=== PATIENT | female | born 1975 | race Caucasian/White ===

== ENCOUNTER 2021-07-30 08:01 | Inpatient (IN) | payer MEDICARE, MEDICAID ==
[2021-07-30] MEDS ORDERED: Rocuronium 50 MG/5 ML Vial ONE (08:40)
[2021-07-30] MEDS ORDERED: Neostigmine Methylsulfate 1 MG/ML 5 ML Syringe ONE (08:40)
[2021-07-30] MEDS ORDERED: Propofol 200 MG/20 ML SDV ONE (08:40)
[2021-07-30] MEDS ORDERED: Ondansetron 4 MG/2 ML SDV ONE (08:40)
[2021-07-30] MEDS ORDERED: Succinylcholine 200 MG/10 ML MDV ONE (08:40)
[2021-07-30] MEDS ORDERED: fentaNYL 250 MCG/5 ML SDV ONE ×2 (08:40→12:20)
[2021-07-30] MEDS ORDERED: Glycopyrrolate 0.2 MG/ML 5 ML MDV ONE (08:40)
[2021-07-30] MEDS ORDERED: Dexamethasone 4 MG/ML SDV ONE (08:40)
[2021-07-30] MEDS ORDERED: Celecoxib 200 MG Cap PO ONE (09:00)
[2021-07-30] MEDS ORDERED: Scopolamine 1.5 MG Transdermal Patch TOP SCH (09:00)
[2021-07-30] MEDS ORDERED: Acetaminophen 500 MG Tab PO ONE (09:00)
[2021-07-30] MEDS ORDERED: Dextrose 5%-Lactated Ringers 1,000 ML IV SCH (09:30)
[2021-07-30] MEDS ORDERED: Meropenem 500 MG in Sodium Chloride 0.9% 50 ML IV ONE (10:30)
[2021-07-30] MEDS ORDERED: Naloxone 0.4 MG/ML SDV IVPUSH PRN (10:32)
[2021-07-30] MEDS ORDERED: Ondansetron 4 MG/2 ML SDV IVPUSH PRN ×2 (10:32→16:00)
[2021-07-30] MEDS ORDERED: diphenhydrAMINE 25 MG Cap PO PRN (10:32)
[2021-07-30] MEDS ORDERED: diphenhydrAMINE 50 MG/ML SDV IVPUSH PRN ×2 (10:32→16:00)
[2021-07-30] MEDS ORDERED: HYDROmorphone/Normal Saline 6 MG/30 ML PCA Vial IV PRN (10:32)
[2021-07-30] MEDS ORDERED: Lidocaine 1% with EPINEPHrine 1:100,000 50 ML MDV ONE (10:51)
[2021-07-30] MEDS ORDERED: Meropenem 500 MG SDV ONE (10:51)
[2021-07-30] MEDS ORDERED: Bupivacaine 0.5% 50 ML MDV ONE (10:51)
[2021-07-30] MEDS ORDERED: Naloxone 0.4 MG/ML SDV IV PRN (11:00)
[2021-07-30] MEDS ORDERED: Lactated Ringers 1,000 ML ONE (13:16)
[2021-07-30] MEDS ORDERED: Ketamine 15 MG in Sodium Chloride 0.9% 19.85 ML IV SCH (14:00)
[2021-07-30] MEDS ORDERED: Ketamine 500 MG/5 ML MDV IV SCH (14:00)
[2021-07-30] MEDS ORDERED: diphenhydrAMINE 50 MG/ML SDV ONE (14:23)
[2021-07-30] MEDS ORDERED: Albuterol/Ipratropium 3.0-0.5 MG/3 ML Neb Soln INH PRN (15:28)
[2021-07-30] MEDS ORDERED: LORazepam 2 MG/ML SDV IVPUSH PRN (15:37)
[2021-07-30] MEDS ORDERED: Meropenem 500 MG in Sodium Chloride 0.9% 50 ML IV SCH (15:45)
[2021-07-30] MEDS: Cyclobenzaprine 10 MG Tab PO PRN (15:52)
[2021-07-30] MEDS ORDERED: MVI, Adult with Vitamin K 10 ML, Thiamine 200 MG, Zinc/Copper/Manganese/Selenium 1 ML i... IV SCH ×4 (16:00)
[2021-07-30] MEDS ORDERED: Metoclopramide 10 MG/2 ML SDV IVPUSH PRN (16:00)
[2021-07-30] MEDS ORDERED: hydrOXYzine HCL 100 MG/2 ML SDV IM PRN (16:00)
[2021-07-30] MEDS ORDERED: Labetalol 20 MG/4 ML Syringe IVPUSH PRN (16:00)
[2021-07-30] MEDS: Pantoprazole 40 MG Vial IVPUSH SCH (16:39)
[2021-07-30] MEDS: Acetaminophen 500 MG Tab PO SCH (17:33)
[2021-07-30] MEDS: Meropenem 500 MG in Sodium Chloride 0.9% 50 ML IV SCH ×2 (17:34→23:09)
[2021-07-30] MEDS: Heparin Sodium 5,000 Units/ML Vial SUBCUT SCH (20:35)
[2021-07-30] MEDS: traZODone 50 MG Tab PO SCH (20:35)
[2021-07-30] MEDS: Dextrose 5%-Lactated Ringers 1,000 ML IV SCH (23:09)
[2021-07-31] MEDS ORDERED: Iopamidol 510 MG/ML 50 ML SDV PO ONE (00:38)
[2021-07-31] MEDS: Acetaminophen 500 MG Tab PO SCH ×3 (01:33→17:24)
[2021-07-31] MEDS: Dextrose 5%-Lactated Ringers 1,000 ML IV SCH ×2 (05:47→09:04)
[2021-07-31] MEDS: Meropenem 500 MG in Sodium Chloride 0.9% 50 ML IV SCH ×3 (05:47→17:24)
[2021-07-31] MEDS: Heparin Sodium 5,000 Units/ML Vial SUBCUT SCH ×2 (08:59→21:19)
[2021-07-31] MEDS: Bisacodyl 5 MG Tab PO SCH ×2 (08:59→21:20)
[2021-07-31] MEDS: Docusate Sodium 100 MG Cap PO SCH ×2 (08:59→21:20)
[2021-07-31] MEDS: Celecoxib 200 MG Cap PO SCH ×2 (09:00→21:20)
[2021-07-31] MEDS: SCOPOLAMINE PATCH CHECK TOP SCH (09:01)
[2021-07-31] MEDS: PILOCARPINE 5 MG PO SCH (09:03)
[2021-07-31] MEDS: Cyclobenzaprine 10 MG Tab PO PRN ×2 (09:11→17:19)
[2021-07-31] MEDS: Phosphorus #1 250 MG Tab PO SCH ×3 (09:46→21:20)
[2021-07-31] MEDS: oxyCODONE 5 MG Tab PO PRN ×3 (12:53→19:56)
[2021-07-31] MEDS: hydrOXYzine HCl 25 MG Tab PO PRN (13:56)
[2021-07-31] MEDS ORDERED: MVI, Adult with Vitamin K 10 ML, Thiamine 200 MG, Zinc/Copper/Manganese/Selenium 1 ML i... IV SCH ×4 (16:00)
[2021-07-31] MEDS: Pantoprazole 40 MG Vial IVPUSH SCH (16:41)
[2021-07-31] MEDS: traZODone 50 MG Tab PO SCH (21:20)
[2021-08-01] MEDS: Acetaminophen 500 MG Tab PO SCH ×3 (01:36→17:03)
[2021-08-01] MEDS: oxyCODONE 5 MG Tab PO PRN ×4 (01:36→21:22)
[2021-08-01] MEDS: Ondansetron 4 MG Tab.DIS PO PRN (02:31)
[2021-08-01] MEDS: Dextrose 5%-Lactated Ringers 1,000 ML IV SCH ×2 (03:18→16:20)
[2021-08-01] MEDS: Phosphorus #1 250 MG Tab PO SCH (05:46)
[2021-08-01] MEDS ORDERED: Benzocaine/Cetylpyridinium/Menthol Lozenge MUCMEM PRN (06:59)
[2021-08-01] MEDS ORDERED: Metoclopramide 10 MG/2 ML SDV IV SCH (08:00)
[2021-08-01] MEDS ORDERED: Cyanocobalamin (Vitamin B12) 1,000 MCG/ML SDV IM ONE (09:00)
[2021-08-01] MEDS: Magnesium Sulfate/Water 2 GM/50 ML BAG IV SCH ×3 (09:22→19:50)
[2021-08-01] MEDS: Bisacodyl 5 MG Tab PO SCH ×2 (09:33→21:21)
[2021-08-01] MEDS: Celecoxib 200 MG Cap PO SCH ×2 (09:35→21:22)
[2021-08-01] MEDS: Docusate Sodium 100 MG Cap PO SCH ×2 (09:35→21:21)
[2021-08-01] MEDS: Heparin Sodium 5,000 Units/ML Vial SUBCUT SCH ×2 (09:37→21:22)
[2021-08-01] MEDS: PILOCARPINE 5 MG PO SCH (09:38)
[2021-08-01] MEDS: SCOPOLAMINE PATCH CHECK TOP SCH (09:38)
[2021-08-01] MEDS: Cyclobenzaprine 10 MG Tab PO PRN (09:50)
[2021-08-01] MEDS ORDERED: Potassium Phosphates 15 MMOLE in Sodium Chloride 0.9% 250 ML IV SCH (10:30)
[2021-08-01] MEDS: Potassium Phos in 0.9 % NaCl 15 MMOL in Premix Bag 1 BAG IV SCH ×4 (10:59→14:07)
[2021-08-01] MEDS: Metoclopramide 10 MG/2 ML SDV IV SCH ×2 (16:19→21:22)
[2021-08-01] MEDS: Pantoprazole 40 MG Delayed-Release Granules 1 Packet PO SCH (16:20)
[2021-08-01] MEDS: traZODone 50 MG Tab PO SCH (21:22)
[2021-08-02] MEDS: Metoclopramide 10 MG/2 ML SDV IV SCH (03:01)
[2021-08-02] MEDS: oxyCODONE 5 MG Tab PO PRN ×5 (03:01→22:57)
[2021-08-02] MEDS: Acetaminophen 500 MG Tab PO SCH ×3 (03:01→18:12)
[2021-08-02] MEDS: Magnesium Sulfate/Water 2 GM/50 ML BAG IV SCH ×4 (03:01→20:53)
[2021-08-02] MEDS ORDERED: Metoclopramide 10 MG/2 ML SDV IV PRN (07:03)
[2021-08-02] MEDS: Ondansetron 4 MG Tab.DIS PO PRN ×2 (07:51→16:21)
[2021-08-02] MEDS: Cyclobenzaprine 10 MG Tab PO PRN ×2 (07:51→20:54)
[2021-08-02] MEDS ORDERED: Tranexamic Acid 1,000 MG in Sodium Chloride 0.9% 50 ML IV ONE (08:00)
[2021-08-02] MEDS: Bisacodyl 5 MG Tab PO SCH ×2 (09:56→20:38)
[2021-08-02] MEDS: Docusate Sodium 100 MG Cap PO SCH ×2 (09:57→20:38)
[2021-08-02] MEDS: PILOCARPINE 5 MG PO SCH (09:58)
[2021-08-02] MEDS: Acetaminophen 500 MG Tab PO PRN (13:58)
[2021-08-02] MEDS: hydrOXYzine HCl 25 MG Tab PO PRN ×2 (16:21→20:53)
[2021-08-02] MEDS: Pantoprazole 40 MG Delayed-Release Granules 1 Packet PO SCH (16:53)
[2021-08-02] MEDS: Dextrose 5%-Lactated Ringers 1,000 ML IV SCH ×2 (18:16→19:26)
[2021-08-02] MEDS: traZODone 50 MG Tab PO SCH (20:54)
[2021-08-03] MEDS: Acetaminophen 500 MG Tab PO SCH ×3 (02:55→17:14)
[2021-08-03] MEDS: Magnesium Sulfate/Water 2 GM/50 ML BAG IV SCH ×4 (02:55→19:24)
[2021-08-03] MEDS: oxyCODONE 5 MG Tab PO PRN ×5 (03:00→20:58)
[2021-08-03] MEDS: Acetaminophen 500 MG Tab PO PRN (08:01)
[2021-08-03] MEDS: Docusate Sodium 100 MG Cap PO SCH (08:02)
[2021-08-03] MEDS: PILOCARPINE 5 MG PO SCH (08:03)
[2021-08-03] MEDS: Bisacodyl 5 MG Tab PO SCH (08:03)
[2021-08-03] MEDS: Cyclobenzaprine 10 MG Tab PO PRN (09:34)
[2021-08-03] MEDS: hydrOXYzine HCl 25 MG Tab PO PRN ×3 (15:17→23:41)
[2021-08-03] MEDS: Pantoprazole 40 MG Delayed-Release Granules 1 Packet PO SCH (15:25)
[2021-08-03] MEDS: traZODone 50 MG Tab PO SCH (20:57)
[2021-08-03] MEDS: Dextrose 5%-Lactated Ringers 1,000 ML IV SCH (21:03)
[2021-08-04] MEDS: Magnesium Sulfate/Water 2 GM/50 ML BAG IV SCH (01:22)
[2021-08-04] MEDS: Acetaminophen 500 MG Tab PO SCH ×2 (01:22→10:21)
[2021-08-04] MEDS: oxyCODONE 5 MG Tab PO PRN ×3 (01:22→10:20)
[2021-08-04] MEDS: hydrOXYzine HCl 25 MG Tab PO PRN (03:30)
[2021-08-04] MEDS: PILOCARPINE 5 MG PO SCH (08:44)
[2021-08-04] MEDS: Ondansetron 4 MG Tab.DIS PO PRN (08:49)
== END 2021-08-04 10:30 | disposition home or self-care (01) | DRG 327 ==
LOC: JP.SDSSCHI 09:01 → JP.SDS 09:01 → EDSTATUS 11:00 → JP.MS 13:58
PROVIDERS: ADMIT Surgery; ATTEND Surgery
PROC: 0D160ZA Bypass Stomach to Jejunum, Open Approach (ICD-10-PCS; 2021-07-30)
PROC: 0DB80ZZ Excision of Small Intestine, Open Approach (ICD-10-PCS; 2021-07-30)
PROC: 0WQF0ZZ Repair Abdominal Wall, Open Approach (ICD-10-PCS; 2021-07-30)
PROC: 0DBW0ZZ Excision of Peritoneum, Open Approach (ICD-10-PCS; 2021-07-30)
PROC: 3E0M05Z Introduction of Adhesion Barrier into Peritoneal Cavity, Open Approach (ICD-10-PCS; 2021-07-30)
PROC: 30233N1 Transfusion of Nonautologous Red Blood Cells into Peripheral Vein, Percutaneous Approach (ICD-10-PCS; principal; 2021-08-02)
DX: K55.1 Chronic vascular disorders of intestine (principal); K95.89 Other complications of other bariatric procedure; Y83.8 Other surgical procedures as the cause of abnormal reaction of the patient, or of later complication, without mention of misadventure at the time of the procedure; K43.2 Incisional hernia without obstruction or gangrene; E55.9 Vitamin D deficiency, unspecified; F41.9 Anxiety disorder, unspecified; G40.909 Epilepsy, unspecified, not intractable, without status epilepticus; G43.909 Migraine, unspecified, not intractable, without status migrainosus; D50.9 Iron deficiency anemia, unspecified; G47.00 Insomnia, unspecified; G89.4 Chronic pain syndrome; M79.7 Fibromyalgia; Z98.84 Bariatric surgery status; D64.9 Anemia, unspecified; E03.9 Hypothyroidism, unspecified; Z79.890 Hormone replacement therapy; M85.80 Other specified disorders of bone density and structure, unspecified site; Z79.899 Other long term (current) drug therapy; Z88.8 Allergy status to other drugs, medicaments and biological substances; Z88.0 Allergy status to penicillin; Z88.1 Allergy status to other antibiotic agents; Z88.5 Allergy status to narcotic agent
CPT/HCPCS: 36415; 36430; 74240; 80053; 81025; 83735; 83880; 84100; 85025; 85027; 86850; 86900; 86901; 86920; 86922; 88302; 88307; A9270-GY; C9113; J0171; J0330; J1100; J1170; J1200; J1644; J2020; J2185; J2405; J2704; J2710; J2765; J2795; J3010; J3411; J3420; J3475; J3490; J7120; J7121; P9016; Q0162; Q9966